=== PATIENT | male | born 1990 | race Caucasian/White ===

== ENCOUNTER 2023-10-31 02:11 | Emergency (ER) | payer MEDICAID, OTHER ==
[2023-10-31 03:14] LABS: BASOPHILS PERCENT AUTO 0.2 % (0.0-1.0); EOSINOPHILS PERCENT AUTO 2.1 % (1.0-3.0); HEMATOCRIT 39.9 % (40.0-54.0); HEMOGLOBIN 13.2 g/dL (14.0-18.0); LYMPHOCYTES PERCENT AUTO 18.6 % (20.5-50.1); MEAN CORPUSCULAR HEMOGLOBIN 30.7 pg (27.0-34.0); MEAN CORPUSCULAR HGB CONC 33.1 g/dL (33.0-35.0); MEAN CORPUSCULAR VOLUME 92.8 fL (80-100); MONOCYTES PERCENT AUTO 8.3 % (2-8); NEUTROPHILS PERCENT AUTO 70.8 % (42.2-75.2); PLATELET COUNT,PLT 182 10^3/uL (150-450)
[2023-10-31 03:38] LABS: INR 1.1 (0.9-1.2); PROTHROMBIN TIME 11.5 SEC (9.0-12.0)
[2023-10-31 03:42] LABS: A/G RATIO 1.4; ALANINE AMINOTRANSFERASE,ALT 33 U/L (16-63); ALBUMIN 3.9 g/dL (3.4-5.0); ALKALINE PHOSPHATASE 67 U/L (46-116); ANION GAP 10.7 mEq/L (7-13); ASPARTATE AMNIOTRANSFERASE,AST 24 U/L (15-37); BILIRUBIN TOTAL 0.4 mg/dL (0.2-1.0); BLOOD UREA NITROGEN,BUN 14 mg/dL (7-18); BUN/CREATININE RATIO 13.9 (No establ ref range); CALCIUM 8.7 mg/dL (8.5-10.1); CARBON DIOXIDE,CO2 31 mmol/L (21-32); CHLORIDE,CL 107 mmol/L (98-107); CREATININE 1.01 mg/dL (0.70-1.30); ESTIMATED GFR 101 mL/min (>=60); GLUCOSE RANDOM 89 mg/dL (70-99); POTASSIUM,K 3.7 mmol/L (3.5-5.1); PROTEIN TOTAL,TP 6.6 g/dL (6.4-8.2); SODIUM,NA 145 mmol/L (136-145)
[2023-10-31] MEDS: Sodium Chloride 0.9% 10 ML Syringe FLUSH PRN (04:03)
[2023-10-31] MEDS: cefTRIAXone 1 GM Vial IVPUSH ONE (04:03)
== END 2023-10-31 04:24 ==
LOC: DL.ED 02:11
DX: S02.2XXA Fracture of nasal bones, initial encounter for closed fracture (principal); S02.831A Fracture of medial orbital wall, right side, initial encounter for closed fracture; X58.XXXA Exposure to other specified factors, initial encounter
CPT/HCPCS: 36415; 70450; 70486; 72125; 80053; 85025; 85610; 85730; 96374; 99284; J0696; J3490

== ENCOUNTER 2023-12-20 09:59 | Emergency (ER) | payer BC, MEDICAID ==
[2023-12-20] MEDS: Ketorolac 30 MG/ML SDV IM ONE (11:04)
[2023-12-20] MEDS: Acetaminophen 500 MG Tab PO ONE (11:05)
[2023-12-20] MEDS: Lidocaine 2% with EPINEPHrine 1:200,000 20 ML SDV INJECT ONE (11:08)
== END 2023-12-20 11:48 | disposition home or self-care (01) ==
LOC: DL.ED 09:59
DX: L02.411 Cutaneous abscess of right axilla (principal)
CPT/HCPCS: 10060; 87070; 87077; 87186; 96372; 99283; A9270; J1885; J3490